=== PATIENT | male | born 1955 | race Hispanic/Latino ===

== ENCOUNTER 2016-08-03 10:31 | Day surgery (SDC) | payer BC ==
[2016-08-03 11:25] LABS: Hematocrit 42.4 % (35.5-45.6); Hemoglobin 14.3 gm/dl (11.8-15.2); Mean Corpuscular HGB Conc 34 % (32-34); Mean Corpuscular Hemoglobin 30 pg (28-32); Mean Corpuscular Volume 89 fl (84-94); Platelet Count 164 K/mm3 (140-440); Red Blood Count 4.78 M/mm3 (3.65-5.03); Red Cell Distribution Width 12.8 % (13.2-15.2); White Blood Count 5.9 K/mm3 (4.5-11.0)
[2016-08-03 11:37] LABS: INR 1.1 (0.87-1.13)
[2016-08-03 11:38] LABS: Partial Thromboplastin Time 30.9 Sec. (24.2-36.6)
[2016-08-03 11:41] LABS: Anion Gap 16 mmol/L; Blood Urea Nitrogen 19 mg/dL (9-20); Calcium 8.9 mg/dL (8.4-10.2); Carbon Dioxide 28 mmol/L (22-30); Chloride 98.9 mmol/L (98-107); Glucose 111 mg/dL (75-100); Potassium 4.2 mmol/L (3.6-5.0); Sodium 139 mmol/L (137-145)
[2016-08-03] MEDS ORDERED: XYLOCAINE MPF 2% ONE (12:00)
[2016-08-03] MEDS ORDERED: NACL 0.9% 500 ML 500 ML IV SCH (12:00)
[2016-08-03] MEDS ORDERED: DIPRIVAN 10 MG/ML IV ONE (12:03)
--- NOTE | 2016-08-03 12:14 | Anesthesia Consultation ---
Anesthesia Consult and Med Hx Date of service: 08/03/16 - Airway Anesthetic Teeth Evaluation: Poor (some careous teeth), Partials (upper and lower) ROM Head & Neck: Adequate Mental/Hyoid Distance: Adequate Mallampati Class: Class III Intubation Access Assessment: Possibly Difficult - Pre-Operative Health Status ASA Pre-Surgery Classification: ASA3 Proposed Anesthetic Plan: MAC - Pulmonary Hx Smoking: Yes (quit 1973) Hx Asthma: Yes (uses inhaler PRN) - Cardiovascular System Hx Hypertension: Yes Hx Coronary Artery Disease: No (high cholesterol) Hx Cardia Arrhythmia: Yes (atrial fibrilation) - Central Nervous System Hx Psychiatric Problems: Yes - Gastrointestinal Hx Gastroesophageal Reflux Disease: Yes - Other Systems Hx Cancer: No Hx Obesity: Yes (BMI 35.3)
--- NOTE | 2016-08-03 12:15 | Anesthesia Day of Surgery ---
Anesthesia Day of Surgery - Day of Surgery Patient Examined: Yes Patient H&P Reviewed: Yes Patient is NPO: Yes Beta Blockers: Yes (took it yesterday, to take after procedure)
--- NOTE | 2016-08-03 12:53 | Post Anesthesia Evaluation ---
- Post Anesthesia Evaluation Patient Participated: Yes Airway Patent: Yes Stable Respiratory Function: Yes Temp > 96.8F: Yes Pain Manageable: Yes Adequeate Hydration: Yes Anesthesia Complications: No Block Receding Appropriately: Not Applicable
[2016-08-03 14:12] VITALS: BP 139/85
--- NOTE | 2016-08-04 01:14 | Procedure Note ---
ELECTRICAL CARDIOVERSION REASON FOR ELECTRICAL CARDIOVERSION: Atrial fibrillation. DESCRIPTION OF PROCEDURE: Informed consent was first obtained for electrical cardioversion. The patient was then placed in the supine position, and electrode pads applied over the anterior chest wall. With continuous electrocardiographic monitoring, the patient was then sedated by the anesthesiologist. After adequate sedation, a 200 joule synchronized shock was applied over the electrode pads. The patient remained in atrial fibrillation. A repeat 200 joule synchronized cardioversion was attempted with failure to convert to sinus rhythm. The patient tolerated the procedure well with no obvious complication. JOB# [id number] MICAH/ELISSA CAMILO
== END 2016-08-03 14:30 | disposition home or self-care (01) ==
LOC: OPU 10:31
PROVIDERS: ATTEND Internal Medicine Cardiovascular Disease
DX: I48.91 Unspecified atrial fibrillation (principal); I10 Essential (primary) hypertension; J45.909 Unspecified asthma, uncomplicated; K21.9 Gastro-esophageal reflux disease without esophagitis; E78.5 Hyperlipidemia, unspecified; E66.9 Obesity, unspecified; Z68.35 Body mass index [BMI] 35.0-35.9, adult; Z87.891 Personal history of nicotine dependence; Z72.89 Other problems related to lifestyle; Z82.49 Family history of ischemic heart disease and other diseases of the circulatory system; Z80.1 Family history of malignant neoplasm of trachea, bronchus and lung
CPT/HCPCS: 36415; 80048; 85027; 85610; 85730; 92960; 93005; 93010; J2704; J7040